=== PATIENT | male | born 1980 | race Caucasian/White ===

== ENCOUNTER 2020-01-10 16:54 | Emergency (ER) | payer OTHER, MEDICAID, SELFPAY ==
[2020-01-10 16:59] VITALS: BP 134/81; PULSE 64; RESP 14; TEMP 36.9; O2SAT 98
--- NOTE | 2020-01-10 17:29 | ED.URI ---
HPI - URI/Sore Throat <DEEPTHI Lopez - Last Filed: 01/10/20 19:44> General Chief Complaint: Upper Respiratory Symptoms Stated Complaint: sore throat Time Seen by Provider: 01/10/20 16:59 Source: patient Mode of arrival: Ambulatory History of Present Illness HPI Narrative: 39-year-old male presents emergency department for a sore throat that started approximately 3 days ago. He states initially started as a mild sore throat but has progressively got worse, patient reports it is more painful to swallow. He denies any rhinorrhea, cough, shortness of breath, dizziness, nausea, vomiting, diarrhea, or any other concerns. He denies any exposure to persons with strep or COVID-19. He declines test for COVID-19 at this time. Review of Systems <DEEPTHI Lopez - Last Filed: 01/10/20 19:44> Review of Systems Narrative: REVIEW OF SYSTEMS: GENERAL: Denies fevers. HENT: No head trauma, reports sore throat, see HPI. CARDIOVASCULAR: No chest pain. RESPIRATORY: No shortness of breath. GASTROINTESTINAL: No nausea, vomiting, diarrhea, or constipation. MUSCULOSKELETAL: No weakness or injury. Patient History <DEEPTHI Lopez - Last Filed: 01/10/20 19:44> Medical History No significant medical problems Social History Smoking Status: Never smoker Smoking Status: Never smoker Exam <DEEPTHI Lopez - Last Filed: 01/10/20 19:44> Initial Vital Signs Initial Vital Signs: Vital Signs Temperature 98.5 F 01/10/20 16:59 Pulse Rate 64 01/10/20 16:59 Respiratory Rate 14 01/10/20 16:59 Blood Pressure 134/81 01/10/20 16:59 Pulse Oximetry 98 01/10/20 16:59 PHYSICAL EXAMINATION: GENERAL: Well groomed, alert, and cooperative. Answers questions promptly and appropriately. Vital signs noted. HENT: Normocephalic, atraumatic. Ear canals patent. Oropharynx with slight erythema, tonsils not present. No exudate. EYES: Conjunctiva pink, sclera white, no periorbital swelling. No discharge. CHEST: Normal to inspection and without deformities. CARDIOVASCULAR: S1 and S2 sounds normal. Regular rate and rhythm, no murmurs, clicks, or bruits. RESPIRATORY: Normal respiratory rate, trachea midline, airway patent. No stridor, nasal flaring or accessory muscle use. Able to speak in full sentences. Lungs are clear in all edwards without wheeze, rhonchi, or crackles. MUSCULOSKELETAL: Normal gait and coordination. Equal tone and mass bilaterally. EXTREMITIES: Moves all extremities. SKIN: Warm, dry, soft, appropriate color for ethnicity. No lesions, rashes, or wounds to visualized areas. NEURO: Alert and Oriented X 3. Good coordination. No ataxia or cognitive issues. PSYCH: Appropriate affect and mood. <Win Lyle DO - Last Filed: 01/11/20 07:12> Initial Vital Signs Initial Vital Signs: Vital Signs Temperature 98.5 F 01/10/20 16:59 Pulse Rate 64 01/10/20 16:59 Respiratory Rate 14 01/10/20 16:59 Blood Pressure 134/81 01/10/20 16:59 Pulse Oximetry 98 01/10/20 16:59 Course <DEEPTHI Lopez - Last Filed: 01/10/20 19:44> Vital Signs Vital signs: Vital Signs - 8 hr 01/10/20 16:59 Temperature 98.5 F Pulse Rate 64 Respiratory Rate 14 Blood Pressure 134/81 Pulse Oximetry 98 <Win Lyle DO - Last Filed: 01/11/20 07:12> Vital Signs Vital signs: Vital Signs - 8 hr 01/10/20 16:59 Temperature 98.5 F Pulse Rate 64 Respiratory Rate 14 Blood Pressure 134/81 Pulse Oximetry 98 MDM - URI/Sore Throat <DEEPTHI Lopez - Last Filed: 01/10/20 19:44> Medical Records Attestation: I reviewed the patient's medical records. Lab Data Attestation: I reviewed the patient's lab results. Labs: Point of Care Testing Rapid Strep A Negative MDM Narrative Medical decision making narrative: History and examination concerning for viral pharyngitis due to mild symptoms and short duration since onset of symptoms.. Less likely strep given negative POC, appearance of throat, and lack of other concerning symptoms such as fever. Patient was offered COVID-19 test, declined at this time. Patient was encouraged to follow up with PCP in the next 1-2 weeks for further evaluation. ED precautions given for new or worsening symptoms. Patient agreed to plan of care verbalized understanding. <Win Lyle DO - Last Filed: 01/11/20 07:12> Lab Data Labs: Point of Care Testing Rapid Strep A Negative Discharge Plan Departure Patient Disposition: Home Clinical Impression: Acute viral pharyngitis Instructions: DI for Viral Pharyngitis Activity Restrictions/Additional Instructions: Thank you for entrusting me with your care today. As discussed, your strep test is negative. I suspect ear throat pain is most likely caused by a viral illness. Viruses can last 10-14 days. Drink plenty of fluid, use warm salt water gargles, and throat lozenges. Take ibuprofen as needed for pain. Follow-up with your PCP in 2 weeks if symptoms continue. Return emergency department for any new or worsening symptoms. <Win Lyle DO - Last Filed: 01/11/20 07:12> Cosign ED Attending Cosignature Attestation: Dr Lyle Co-Sign Statement: I was available for consultation during this patient's emergency department visit. This chart is signed by myself for administrative purposes only. I did not have direct contact with this patient during this visit. They were seen independently by the APC.
== END 2020-01-10 18:04 | disposition home or self-care (01) ==
PROVIDERS: Emergency Provider Nurse Practitioner
DX: J02.9 Acute pharyngitis, unspecified (principal)
CPT/HCPCS: 87880; 99281; 99282

== ENCOUNTER 2020-06-09 16:10 | Emergency (ER) | payer OTHER, MEDICAID, SELFPAY ==
[2020-06-09 16:10] VITALS: BP 125/79; PULSE 80; RESP 16; TEMP 36.7; O2SAT 98; BMI 24.9
--- NOTE | 2020-06-09 16:13 | ED_ITS ---
HPI - General Adult General Chief complaint: Upper Respiratory Symptoms Stated complaint: sore throat, fevers, feel horrible, fatigue Time Seen by Provider: 06/09/20 16:12 Source: patient Mode of arrival: Ambulatory Limitations: no limitations History of Present Illness HPI narrative: Patient is an otherwise healthy 39-year-old male here for evaluation of sore throat and fevers and fatigue and not feeling very well. Symptoms been going on for the past several days. He had similar symptoms several weeks ago was seen in outside facility was given antibiotics and he states the symptoms improved. No cough. No problems breathing. No problems swallowing. No rashes. Related Data Allergies Allergy/AdvReac Type Severity Reaction Status Date / Time No Known Drug Allergies Allergy Verified 06/09/20 16:24 Review of Systems Constitutional Constitutional: Reports chills, Reports fatigue and Reports fever(s) Eyes Eyes: Denies change in vision ENT Ears, Nose, Mouth, and Throat: Reports sore throat Cardiovascular Cardiovascular: Denies chest pain and Denies dyspnea Respiratory Respiratory: Denies cough and Denies dyspnea Gastrointestinal Gastrointestinal: Denies abdominal pain Integumentary/Breasts Skin/Breast: Denies rash Neurologic Neurologic: Denies behavioral changes Psychiatric Psychiatric: Denies behavioral changes Endocrine Endocrine: Reports fatigue Hematologic/Lymphatic On Anticoagulants: No Allergic/Immunologic Allergic/Immunologic: Denies urticaria Patient History Medical History No significant medical problems Social History Smoking Status: Never smoker Smoking Status: Never smoker Exam Initial Vital Signs Initial Vital Signs: Vital Signs Temperature 98.1 F 06/09/20 16:10 Pulse Rate 80 06/09/20 16:10 Respiratory Rate 16 06/09/20 16:10 Blood Pressure 125/79 06/09/20 16:10 Pulse Oximetry 98 06/09/20 16:10 Const General: cooperative and comfortable Limitations: mental status not altered [facility] Head: normal to inspection and normocephalic Ears: hearing grossly normal bilaterally Nose: external nose normal Mouth: oral mucosae normal, lip normal and tongue normal Throat: uvula midline and abnormal tonsil (Exudate and redness bilateral left greater than right) Neck Lymphatic: lymphadenopathy Resp Effort & Inspection: normal respiratory effort Cardio Rate: regular rate Skin Lesions: no lesions Rashes: no rashes Neuro General: patient alert, patient awake and patient oriented x3 Cognition: normal cognition Speech: speech normal Extrem General: normal to inspection and capillary refill normal Psych Appearance: grossly normal and well kempt Course Orders Ordered: ED Orders 06/09/20 16:20 COVID19 -Nasal swab/Pre-Proc Stat Throat Culture Stat Discontinued Medications Dexamethasone (Dexamethasone 10 Mg/Ml Vial) 10 mg PO NOW ONE Stop: 06/09/20 16:52 Penicillin G Benzathine (Penicillin G Benzathine 1,200,000 Unit/2 Ml Syringe) 1,200,000 unit IM NOW ONE Stop: 06/09/20 16:52 Vital Signs Vital signs: Vital Signs - 8 hr 06/09/20 16:10 Temperature 98.1 F Pulse Rate 80 Respiratory Rate 16 Blood Pressure 125/79 Pulse Oximetry 98 Medical Decision Making Lab Data Lab results reviewed: Yes I reviewed the patient's lab results. Labs: Lab Results 06/09/20 Range/Units 16:20 SARS-CoV-2 (PCR) Negative (Negative) Point of Care Testing Rapid Strep A Negative Point of care testing: Point of Care Testing Rapid Strep A Negative MDM Narrative Medical decision making narrative: Patient's COVID is negative. Rapid strep is negative however his physical exam today is very consistent with strep pharyngitis. A throat culture was pending at the time of discharge. Had a discussion with him regarding his symptoms. We did discuss waiting for the thro at culture to results versus treated with antibiotics today and he opted for treatment with antibiotics. We also discussed treatment options to include intramuscular or oral antibiotics and he opted for the intramuscular injection. Low suspicion for peritonsillar abscess/retropharyngeal abscess. He is not in any respiratory distress. He was given return precautions and follow-up instructions. He expressed understanding and agreement. Discharge Plan Departure Patient Disposition: Home Clinical Impression: Pharyngitis Instructions: Sore Throat Activity Restrictions/Additional Instructions: We did presumptively treat you for strep throat today. There was a throat culture pending at the time of discharge. You can take Tylenol/ibuprofen for any discomfort. Be sure to increase your fluid intake. Return to the emergency department for any new or worsening symptoms
[2020-06-09 16:44] LABS: COVID19 -Nasal RAPID Negative (Negative)
[2020-06-09] MEDS: PENICILLIN G BENZATHINE 1,200,000 UNIT/2 ML SYRINGE 1200000 UNIT IM (17:05)
[2020-06-09] MEDS: DEXAMETHASONE 10 MG/ML VIAL PO (17:05)
[2020-06-09 17:12] VITALS: PULSE 91; RESP 14; TEMP 36.8; O2SAT 97
[2020-06-09 17:20] VITALS: BP 125/77; PULSE 71; TEMP 36.6; O2SAT 98
[2020-06-09 17:33] VITALS: BP 125/77; PULSE 74; RESP 14; O2SAT 96
== END 2020-06-09 17:35 | disposition home or self-care (01) ==
PROVIDERS: Emergency Provider Emergency Medicine
DX: J02.9 Acute pharyngitis, unspecified (principal); R50.9 Fever, unspecified; Z20.822 Contact with and (suspected) exposure to COVID-19
CPT/HCPCS: 87070; 87077; 87147; 87635; 87880; 96372; 99283; C9803; J0561; J1100

== ENCOUNTER 2020-08-19 11:12 | Emergency (ER) | payer OTHER, MEDICAID, SELFPAY ==
[2020-08-19 11:31] VITALS: PULSE 85; O2SAT 100
[2020-08-19 11:34] VITALS: BP 130/79; PULSE 86; RESP 16; TEMP 36.3; O2SAT 97; BMI 24.3
[2020-08-19 12:00] VITALS: PULSE 87; O2SAT 100
[2020-08-19 12:17] LABS: COVID19 -Nasal RAPID Negative (Negative)
--- NOTE | 2020-08-19 12:27 | ED_ITS ---
HPI - URI/Sore Throat <SWAPNA Lomeli - Last Filed: 08/19/20 16:33> General Chief Complaint: Upper Respiratory Symptoms Stated Complaint: really bad sore throat for about a week Time Seen by Provider: 08/19/20 11:39 Source: patient Mode of arrival: Ambulatory Limitations: no limitations History of Present Illness HPI Narrative: The patient is a 39-year-old male nonsmoker with history of COVID in July who presents with a chief complaint of a sore throat for the past 5 days or so. He states he feels like he is developing chills. He states this is similar to when he had bacterial infection in his throat. He denies any cough or congestion, denies any sinus pressure, denies any ear pain. He has been using ibuprofen and [id number]-[id number] cold medications to feel better. Related Data Previous Rx's Medication Instructions Recorded amoxicillin 875 mg tablet 875 mg PO BID #14 tab 08/19/20 Allergies Allergy/AdvReac Type Severity Reaction Status Date / Time No Known Drug Allergies Allergy Verified 06/09/20 16:24 Review of Systems <SWAPNA Lomeli - Last Filed: 08/19/20 16:33> Review of Systems Narrative: GENERAL: See HPI HEENT: See HPI RESPIRATORY: Denies dyspnea, cough, wheezing, hemoptysis, sputum. CARDIOVASCULAR: Denies chest pain, palpitations, orthopnea, edema, GASTROINTESTINAL: Denies nausea, vomiting, abdominal pain, diarrhea, constip ation, melena. : Denies dysuria, frequency, incontinence, hematuria, urinary retention. MUSCULOSKELETAL: denies weakness, joint pain, or bony pain SKIN: Denies rash, skin lesions, or other NEUROLOGIC: Denies weakness, headache, numbness, change in speech, confusion, seizures, incoordination. PSYCHIATRIC: No concerning psychosocial issues. 12 point review of systems is negative except for those stated above Patient History <SWAPNA Lomeli - Last Filed: 08/19/20 16:33> Medical History (Updated 08/19/20 @ 12:41 by SWAPNA Lomeil) History of COVID-19 No significant medical problems Social History Smoking Status: Never smoker Smoking Status: Never smoker Substance Use Type: does not use Exam <SWAPNA Lomeli - Last Filed: 08/19/20 16:33> Narrative Exam Narrative: GENERAL: This is a well-nourished, well-developed patient, in no acute distress HEAD: Atraumatic. Normocephalic. No temporal or scalp tenderness. EYES: Pupils equal round and reactive. Extraocular motions intact. No scleral icterus. No injection or drainage. ENT: Nose without bleeding, purulent drainage or septal hematoma. Throat with who with erythema, oral tonsillar exudate, tonsils equal bilateral, uvula midlin e NECK: Trachea midline. No JVD or lymphadenopathy. Supple, nontender, no meningeal signs. CARDIOVASCULAR: Regular rate and rhythm RESPIRATORY: Clear to auscultation. Breath sounds equal bilaterally. No wheezes, rales, or rhonchi. No cough. No increased respiratory effort. No accessory muscle use. GASTROINTESTINAL: Abdomen soft, non-tender, nondistended. No hepato- splenomegaly, or palpable masses. No guarding. NEURO: AOx3. SKIN: No rash or erythema on visible skin Initial Vital Signs Initial Vital Signs: Vital Signs Pulse Rate 85 08/19/20 11:31 Pulse Oximetry 100 08/19/20 11:31 <Connie Roe DO - Last Filed: 08/19/20 19:16> Initial Vital Signs Initial Vital Signs: Vital Signs Pulse Rate 85 08/19/20 11:31 Pulse Oximetry 100 08/19/20 11:31 Scores <SWAPNA Lomeli - Last Filed: 08/19/20 16:33> GCS Eugenio coma scale eye opening: Spontaneous Eugenio coma scale verbal response: Orientated Eugenio coma scale motor response: Obey commands [place] coma scale total score: 15 qSOFA Altered Mental Status (GCS <15): No Respiratory rate greater than/equal to 22: No Systolic blood pressure less than or equal to 100: No qSOFA Total: 0 0-1 Not High Risk 1-3 High risk <Connie Roe DO - Last Filed: 08/19/20 19:16> GCS Eugenio coma scale total score: 15 qSOFA qSOFA Total: 0 Course <SWAPNA Lomeli - Last Filed: 08/19/20 16:33> Orders Ordered: ED Orders 08/19/20 11:40 COVID19 -Nasal swab/Pre-Proc Stat Throat Culture Stat Reevaluation(s) Reevaluation #1: Discussed with patient negative COVID test, he requests a referral for ENT for [facility]. I encouraged him to follow up with primary care provider regarding this. However he may benefit from a referral given his repeat emergency department visits for sore throat. Vital Signs Vital signs: Vital Signs - 8 hr 08/19/20 11:31 08/19/20 11:34 08/19/20 12:00 Temperature 97.3 F L Pulse Rate 85 86 87 Respiratory Rate 16 Blood Pressure 130/79 Pulse Oximetry 100 97 100 08/19/20 12:30 Temperature Pulse Rate 89 Respiratory Rate Blood Pressure Pulse Oximetry 100 <Connie Roe DO - Last Filed: 08/19/20 19:16> Orders Ordered: ED Orders 08/19/20 11:40 COVID19 -Nasal swab/Pre-Proc Stat Throat Culture Stat Vital Signs Vital signs: Vital Signs - 8 hr 08/19/20 11:31 08/19/20 11:34 08/19/20 12:00 Temperature 97.3 F L Pulse Rate 85 86 87 Respiratory Rate 16 Blood Pressure 130/79 Pulse Oximetry 100 97 100 08/19/20 12:30 Temperature Pulse Rate 89 Respiratory Rate Blood Pressure Pulse Oximetry 100 MDM - URI/Sore Throat <ANIKET Lomeli-BC - Last Filed: 08/19/20 16:33> Differential Diagnosis Differential diagnosis: Likely upper respiratory infection, viral infection and pharyngitis Lab Data Labs: Lab Results 08/19/20 Range/Units 11:40 SARS-CoV-2 (PCR) Negative (Negative) Point of Care Testing Rapid Strep A Negative MDM Narrative Medical decision making narrative: The patient is a 39-year-old male who presents with a chief complaint of sore throat the past 5 days. He appears well nontoxic in the emergency department, is afebrile and well-appearing. However he does have exudate on his tonsils, the cell treat him with amoxicillin for tonsillitis. Encouraged follow-up with primary care provider in the next few days as a med benefit from an ENT referral and further evaluation given multiple trips to the emergency department for sore throat. Discussed taking a probiotic or yogurt with his antibiotics. Prescribed amoxicillin, for cultures pending at this time. COVID was negative today as was rapid strep. Discussed coming back to the ER for acute concerns. Patient has no questions or concerns upon discharge states understanding of return precautions as well as follow-up care. <Connie Roe DO - Last Filed: 08/19/20 19:16> Lab Data Labs: Lab Results 08/19/20 Range/Units 11:40 SARS-CoV-2 (PCR) Negative (Negative) Point of Care Testing Rapid Strep A Negative Discharge Plan Departure Patient Disposition: Home Clinical Impression: Acute tonsillitis Qualifiers: Pharyngitis/tonsillitis etiology: unspecified etiology Qualified Code(s): J03.90 - Acute tonsillitis, unspecified Instructions: DI for Pharyngitis/Tonsillopharyngitis -- Adult Activity Restrictions/Additional Instructions: Thank you for trusting us with your care today As discussed, we have elected to treat you with antibiotics given your exam. Please take this with probiotic or yogurt to help prevent antibiotic related side effects. I sent this prescription to [facility] in [place] Please continue [id number] medications such as acetaminophen and ibuprofen for pain and/or discomfort. Please come back to the emergency department for any acute concerns such as inability to swallow, abdominal pain with fever etcetera Please follow-up with primary care provider in the next few days. Prescriptions: New amoxicillin 875 mg tablet 875 mg PO BID Qty: 14 RF: 0 Referrals: [facility] [Outside] <Connie Roe DO - Last Filed: 08/19/20 19:16> Cosign ED Attending Shanaature Attestation: I was immediately available in the department for consultation. Documentation has been reviewed. I agree with assessment and plan.
[2020-08-19 12:30] VITALS: PULSE 89; O2SAT 100
== END 2020-08-19 12:52 | disposition home or self-care (01) ==
PROVIDERS: Emergency Medicine; Emergency Provider Nurse Practitioner Family
DX: J03.90 Acute tonsillitis, unspecified (principal); Z20.822 Contact with and (suspected) exposure to COVID-19
CPT/HCPCS: 87070; 87635; 87880; 99282; C9803

== ENCOUNTER 2020-10-06 13:10 | Emergency (ER) | payer OTHER, MEDICAID, SELFPAY ==
[2020-10-06 13:10] VITALS: BP 131/74; PULSE 99; RESP 16; TEMP 37.8; O2SAT 100
--- NOTE | 2020-10-06 13:30 | ED_ITS ---
HPI - URI/Sore Throat <Calvin New PA-C - Last Filed: 10/06/20 14:29> General Chief Complaint: Upper Respiratory Symptoms Stated Complaint: Swollen Tonsils, Fever Time Seen by Provider: 10/06/20 13:30 Source: patient Mode of arrival: Ambulatory History of Present Illness HPI Narrative: Khai presents today with chief complaint of sore throat and fever. He reports that the sore throat started 3 days ago and the fever started 2 days ago. He is having significant pain with swallowing that seems to be getting worse but denies any significant difficulty with swallowing. He has not tried any medication to help alleviate symptoms at this time. He denies any significant neck swelling, decreased range of motion of his neck, headache, vision changes, chest pain, cough, nausea, vomiting or any other acute concerns or complaints at this time. He has experienced this for previous times this year. He has an appointment in November with an ENT doctor to try and figure out why this is happening so frequently. Related Data Previous Rx's Medication Instructions Recorded amoxicillin 875 mg tablet 875 mg PO BID #14 tab 08/19/20 amoxicillin 875 mg-potassium 1 tab PO Q12H 14 Days #27 tab 10/06/20 clavulanate 125 mg tablet (Augmentin) Allergies Allergy/AdvReac Type Severity Reaction Status Date / Time No Known Drug Allergies Allergy Verified 10/06/20 14:21 Review of Systems <Calvin New PA-C - Last Filed: 10/06/20 14:29> Review of Systems Narrative: As per HPI Patient History <Calvin New PA-C - Last Filed: 10/06/20 14:29> Medical History (Updated 10/06/20 @ 14:18 by Calvin New PA-C) History of COVID-19 No significant medical problems Social History Smoking Status: Never smoker Smoking Status: Never smoker Substance Use Type: does not use Exam <Calvin New PA-C - Last Filed: 10/06/20 14:29> Narrative Exam Narrative: Const General: cooperative, healthy appearing, comfortable and no acute distress Nutritional Appearance: average body habitus and well nourished Orientation: alert and oriented x3 HENMT Head: normal to inspection and normocephalic Ears: hearing grossly normal bilaterally, external ears normal, TM's normal bilaterally, EAC's normal, mastoids normal and no periauricular adenopathy Nose: external nose normal, nares normal and no nasal discharge Face and sinus: normal facial exam, sinuses nontender and face symmetric Mouth: oral mucosae normal, lip normal, tongue normal and moist mucous membranes Teeth and gingiva: dentition normal and gingiva normal Throat: posterior oropharynx erythematous and edematous. Left worse than right, uvula midline is still midline, no postnasal drainage and no uvular edema Eyes periorbital findings normal, eyelids normal, conjunctivae normal Neck: normal visual inspection, full ROM, bilateral cervical lymphadenopathy, no meningeal signs and supple Resp normal respiratory effort, able to speak in complete sentences, not labored and no respiratory distress, clear to auscultation bilaterally, no crackles, no rales and no wheezes Cardio regular rate regular rhythm Heart Sounds: no gallops, no murmurs and no rubs Neuro Alert and Oriented x3, normal gait, moves all extremities. Initial Vital Signs Initial Vital Signs: Vital Signs Temperature 100.0 F H 10/06/20 13:10 Pulse Rate 99 H 10/06/20 13:10 Respiratory Rate 16 10/06/20 13:10 Blood Pressure 131/74 10/06/20 13:10 Pulse Oximetry 100 10/06/20 13:10 <Juan Davis MD - Last Filed: 10/06/20 16:10> Initial Vital Signs Initial Vital Signs: Vital Signs Temperature 100.0 F H 10/06/20 13:10 Pulse Rate 99 H 10/06/20 13:10 Respiratory Rate 16 10/06/20 13:10 Blood Pressure 131/74 10/06/20 13:10 Pulse Oximetry 100 10/06/20 13:10 Course <Calvin New PA-C - Last Filed: 10/06/20 14:29> Orders Ordered: ED Orders 10/06/20 13:23 Throat Culture Stat 10/06/20 13:34 COVID19 -Nasal swab/Pre-Proc Stat Discontinued Medications Amoxicillin/Clavulanate Potassium (Amoxicillin/Clav 875/125 Mg) 1 tab PO NOW ONE Stop: 10/06/20 14:12 Last Admin: 10/06/20 14:23 Dose: 1 tab Documented by: BRIELLE Dexamethasone (Dexamethasone 10 Mg/Ml Vial) 10 mg PO NOW ONE Stop: 10/06/20 13:44 Last Admin: 10/06/20 13:48 Dose: 10 mg Documented by: BRIELLE Vital Signs Vital signs: Vital Signs - 8 hr 10/06/20 13:10 10/06/20 14:26 Temperature 100.0 F H Pulse Rate 99 H 85 Respiratory Rate 16 20 Blood Pressure 131/74 136/75 Pulse Oximetry 100 99 <Juan Davis MD - Last Filed: 10/06/20 16:10> Orders Ordered: ED Orders 10/06/20 13:23 Throat Culture Stat 10/06/20 13:34 COVID19 -Nasal swab/Pre-Proc Stat Discontinued Medications Amoxicillin/Clavulanate Potassium (Amoxicillin/Clav 875/125 Mg) 1 tab PO NOW ONE Stop: 10/06/20 14:12 Last Admin: 10/06/20 14:23 Dose: 1 tab Documented by: BRIELLE Dexamethasone (Dexamethasone 10 Mg/Ml Vial) 10 mg PO NOW ONE Stop: 10/06/20 13:44 Last Admin: 10/06/20 13:48 Dose: 10 mg Documented by: BRIELLE Vital Signs Vital signs: Vital Signs - 8 hr 10/06/20 13:10 10/06/20 14:26 Temperature 100.0 F H Pulse Rate 99 H 85 Respiratory Rate 16 20 Blood Pressure 131/74 136/75 Pulse Oximetry 100 99 MDM - URI/Sore Throat <Calvin New PA-C - Last Filed: 10/06/20 14:29> Lab Data Labs: Lab Results 10/06/20 Range/Units 13:34 SARS-CoV-2 (PCR) Negative (Negative) Point of Care Testing Rapid Strep A Negative MDM Narrative Medical decision making narrative: Differential diagnosis includes retropharyngeal abscess, bacterial pharyngitis, viral pharyngitis. Patient has a negative group A strep test. I reviewed his records and with his previous workups. Cultures have been done and have resulted in normal oral mayank. One culture showed group G Streptococcus. Physical examination is concerning for peritonsillar abscess at this time. Even with his negative strep test, we will treat with antibiotics. Throat culture sent for evaluation. I asked about STI history to consider gonococcal pharyngitis. Patient is in a monogamous relationship and does not have any history STI. I think that this is low likelihood at this time. Return precautions were discussed with the patient. Patient verbalizes understanding and agrees to plan and has no further concerns at this time. Thank you A [id number] system was used with the dictation of this note. Please disregard any spelling or grammatical errors. <Juan Davis MD - Last Filed: 10/06/20 16:10> Lab Data Labs: Lab Results 10/06/20 Range/Units 13:34 SARS-CoV-2 (PCR) Negative (Negative) Point of Care Testing Rapid Strep A Negative Discharge Plan Departure Patient Disposition: Home Clinical Impression: Abscess, peritonsillar Instructions: DI for Peritonsillar Abscess -- Adult Activity Restrictions/Additional Instructions: It was very nice to meet you this afternoon. Please take the antibiotics as discussed for a peritonsillar abscess. I expect the symptoms to improve over the next 1-2 days as the antibiotics take hold. Please follow-up with your doctor. If you experience worsening pain, difficulty swallowing, difficulty breathing, drooling or have any significant voice changes please return for re- evaluation. Thank you Calvin New PA-C Prescriptions: New amoxicillin-pot clavulanate [Augmentin] 875-125 mg tablet 1 tab PO Q12H 14 Days Qty: 27 RF: 0 No Action amoxicillin 875 mg tablet 875 mg PO BID Qty: 14 RF: 0 Referrals: Mahendra Whitehead DO [Primary Care Provider] -
[2020-10-06] MEDS: DEXAMETHASONE 10 MG/ML VIAL PO (13:48)
[2020-10-06 13:51] LABS: COVID19 -Nasal RAPID Negative (Negative)
[2020-10-06] MEDS: AMOXICILLIN/CLAV 875/125 MG 1 TAB PO (14:23)
[2020-10-06 14:26] VITALS: BP 136/75; PULSE 85; RESP 20; O2SAT 99
== END 2020-10-06 14:27 | disposition home or self-care (01) ==
PROVIDERS: Emergency Medicine; Emergency Provider Physician Assistant; PCP Family Medicine
DX: J36 Peritonsillar abscess (principal); Z20.822 Contact with and (suspected) exposure to COVID-19
CPT/HCPCS: 87070; 87635; 87880; 99283; C9803; J1100

== ENCOUNTER → 2020-11-28 09:37 | Outpatient (CLI) | payer OTHER, MEDICAID, SELFPAY ==
[2020-11-28 10:32] LABS: Add Manual Diff / Slide Review NO; Basophils Absolute Auto 0 /uL (0-100); Basophils Percent Auto 0.4 % (0-2); Eosinophils Absolute Auto 100 /uL (0-450); Eosinophils Percent Auto 1.6 % (2-4); Hematocrit 43.9 % (41-53); Hemoglobin 14.3 g/dL (13.5-17.5); Lymphocytes Absolute Auto 1200 /uL (1100-4500); Lymphocytes Percent Auto 20.5 % (25-40); Mean Corpuscular HGB Conc 32.7 % (30-36); Mean Corpuscular Hemoglobin 28.6 PG (26-34); Mean Corpuscular Volume 87.3 fL (80-100); Monocytes Absolute Auto 500 /uL (0-900); Monocytes Percent Auto 8.9 % (3-14); Neutrophils Absolute Auto 4100 /uL (1500-7000); Neutrophils Percent Auto 68.6 % (50-75); Platelet Count 230 X10^3/uL (150-400); Red Blood Cell Count 5.02 X10^6/uL (4.5-5.9); Red Cell Distribution Width 14.1 % (11.6-14.8)
[2020-11-28 12:14] LABS: Alanine Aminotransferase 55 IU/L (<50); Albumin 4.6 g/dL (3.5-5.0); Albumin Globulin Ratio 1.7 (1.0-2.8); Alkaline Phosphatase 60 U/L (38-126); Aspartate Aminotransferase 37 IU/L (17-59); BUN Creatinine Ratio 22.5 (6-22); Bilirubin Total 0.7 mg/dL (0.2-1.3); Blood Urea Nitrogen 18 mg/dL (9-20); Calcium 9.5 mg/dL (8.4-10.2); Carbon Dioxide 26 mmol/L (22-32); Chloride 106 mmol/L (98-107); Estimated Glomerular Filt Rate > 60.0 mL/min (>60); Globulin 2.7 g/dL (1.7-4.1); Glucose 101 mg/dL (70-100); HEMOLYSIS < 15 (0-50); Potassium 4.6 mmol/L (3.4-5.1); Sodium 141 mmol/L (137-145); Total Protein 7.3 g/dL (6.3-8.2)
[2020-11-28 12:44] LABS: Thyroid Stimulating Hormone 1.04 uIU/mL (0.47-4.68)
[2020-11-29 14:11] LABS: Free T4, Direct Thyroxine 1.23 ng/dL (0.78-2.19)
[2020-11-29 15:33] LABS: Free T3, Triiodothyronine Free 4.85 pg/mL (2.77-5.27)
[2020-12-03 07:44] LABS: Testosterone Free 16.03 ng/dL (5.00-21.00); Testosterone Total 411.1 ng/dL (264.0-916.0)
== END ==
PROVIDERS: PCP Family Medicine; Referring Provider Family Medicine; Visit Provider Family Medicine
DX: F32.A Depression, unspecified (principal); R53.83 Other fatigue
CPT/HCPCS: 36415; 80053; 82306; 84402; 84403; 84439; 84443; 84481; 85025

== ENCOUNTER → 2024-03-11 10:10 | Outpatient (CLI) | payer OTHER, SELFPAY ==
[2024-03-11 10:56] LABS: Add Manual Diff / Slide Review NO; Basophils Absolute Auto 0 /uL (0-100); Basophils Percent Auto 0.3 % (0-2); Eosinophils Absolute Auto 100 /uL (0-450); Eosinophils Percent Auto 2.2 % (2-4); Hematocrit 43.1 % (41-53); Hemoglobin 14.6 g/dL (13.5-17.5); Lymphocytes Absolute Auto 1300 /uL (1100-4500); Lymphocytes Percent Auto 25.2 % (25-40); Mean Corpuscular HGB Conc 33.8 % (30-36); Mean Corpuscular Hemoglobin 29.7 PG (26-34); Mean Corpuscular Volume 87.7 fL (80-100); Monocytes Absolute Auto 500 /uL (0-900); Monocytes Percent Auto 10.2 % (3-14); Neutrophils Absolute Auto 3200 /uL (1500-7000); Neutrophils Percent Auto 62.1 % (50-75); Platelet Count 213 X10^3/uL (150-400); Red Blood Cell Count 4.91 X10^6/uL (4.5-5.9); Red Cell Distribution Width 13.3 % (11.6-14.8); White Blood Cell Count 5.2 X10^3/uL (4.5-11.0)
[2024-03-11 11:16] LABS: Alanine Aminotransferase 44 IU/L (<50); Albumin 4.7 g/dL (3.5-5.0); Albumin Globulin Ratio 1.8 (1.0-2.8); Alkaline Phosphatase 62 U/L (38-126); Aspartate Aminotransferase 39 IU/L (17-59); BUN Creatinine Ratio 22.5 (6-22); Bilirubin Total 0.7 mg/dL (0.2-1.3); Blood Urea Nitrogen 20 mg/dL (9-20); Calcium 9.6 mg/dL (8.4-10.2); Carbon Dioxide 28 mmol/L (22-32); Chloride 106 mmol/L (98-107); Cholesterol 186 mg/dL (140-199); Estimated Glomerular Filt Rate > 60 mL/min (>60); Globulin 2.6 g/dL (1.7-4.1); Glucose 113 mg/dL (70-100); HDL Cholesterol 38 mg/dL (40-60); HEMOLYSIS < 15 (0-50); LDL Cholesterol Calculated 133 mg/dL (<100); Potassium 4.6 mmol/L (3.4-5.1); Sodium 140 mmol/L (137-145); Total Protein 7.3 g/dL (6.3-8.2); Triglycerides 76 mg/dL (35-150)
[2024-03-16 16:36] LABS: Percent Free Testosterone 4.07 % (1.50-4.20); Testosterone Free 10.35 ng/dL (5.00-21.00); Testosterone Total 254.3 ng/dL (264.0-916.0)
== END ==
PROVIDERS: PCP Family Medicine; Referring Provider Family Medicine; Visit Provider Family Medicine
DX: Z13.220 Encounter for screening for lipoid disorders (principal); G47.19 Other hypersomnia; R53.83 Other fatigue; N52.9 Male erectile dysfunction, unspecified
CPT/HCPCS: 36415; 80053; 80061; 84402; 84403; 85025

== ENCOUNTER → 2024-04-08 10:47 | Outpatient (CLI) | payer OTHER, SELFPAY | LOC: LAB 10:48 | PROVIDERS: PCP Family Medicine; Referring Provider Family Medicine; Visit Provider Family Medicine | DX: R79.89 Other specified abnormal findings of blood chemistry (principal) | CPT/HCPCS: 36415; 84402; 84403 ==

== ENCOUNTER → 2024-05-01 16:40 | Outpatient (CLI) | payer OTHER, SELFPAY | PROVIDERS: PCP Family Medicine; Referring Provider Family Medicine; Visit Provider Family Medicine | DX: R79.89 Other specified abnormal findings of blood chemistry (principal); N52.9 Male erectile dysfunction, unspecified | CPT/HCPCS: 36415; 84402; 84403 ==

== ENCOUNTER → 2024-07-03 11:23 | Outpatient (CLI) | payer OTHER, SELFPAY | LOC: LAB 11:25 | PROVIDERS: PCP Family Medicine; Referring Provider Family Medicine; Visit Provider Family Medicine | DX: R79.89 Other specified abnormal findings of blood chemistry (principal) | CPT/HCPCS: 36415; 84402; 84403 ==